=== PATIENT | female | born 1985 | race Caucasian/White ===

== ENCOUNTER 2019-04-08 23:52 | Emergency (ER) | payer MEDICAID, OTHER | END 2019-04-09 01:01 | disposition home or self-care (01) | LOC: EDH 23:52 | DX: S43.491A Other sprain of right shoulder joint, initial encounter (principal); Z88.2 Allergy status to sulfonamides; Z72.0 Tobacco use; X50.1XXA Overexertion from prolonged static or awkward postures, initial encounter; Y93.89 Activity, other specified; Y92.098 Other place in other non-institutional residence as the place of occurrence of the external cause; Y99.8 Other external cause status | CPT/HCPCS: 73000 ==